=== PATIENT | female | born 1960 | race Caucasian/White ===

== ENCOUNTER 2019-01-15 18:34 | Emergency (ER) | payer BC ==
[2019-01-15] MEDS ORDERED: Sodium Chloride 0.9% 10 ML Syringe FLUSH PRN (18:43)
--- NOTE | 2019-01-15 18:43 | EDM.PDOC ---
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 R79.89 - OTHER SPECIFIED ABNORMAL FINDINGS OF BLOOD CHEMISTRY Status: Acute Priority: High Current Visit: Yes Onset Date: 01/15/19 Annotation/Comment:: No clinical evidence of DVT or PE. Dr. Medina is in agreement of delaying CTA of the chest for now. Patient may benefit from venous Doppler studies of the lower extremities, however. (6) Elevated lactic acid level SNOMED Code(s): 8128962 Code(s): R79.89 - OTHER SPECIFIED ABNORMAL FINDINGS OF BLOOD CHEMISTRY Status: Acute Priority: High Current Visit: Yes Onset Date: 01/15/19 Annotation/Comment:: No fever, leukocytosis, or evidence of sepsis. Consider repeat lactic acid level in about 3 hours by accepting providers. IV heparin and IV fluids initiated as above. (7) Elevated LFTs SNOMED Code(s): 933383166, 880198524 Code(s): R94.5 - ABNORMAL RESULTS OF LIVER FUNCTION STUDIES Status: Acute Priority: High Current Visit: Yes Onset Date: 01/15/19 Annotation/ Comment:: Mild LFTs elevation likely secondary to borderline CHF and/or fatty liver. Continue to observe closely by accepting providers. (8) Hypoalbuminemia SNOMED Code(s): 186604155 Code(s): E88.09 - OTH DISORDERS OF PLASMA-PROTEIN METABOLISM, NEC Status: Acute Priority: Medium Current Visit: Yes Onset Date: 01/15/19 Annotation/Comment:: Observe for now. Consider high protein Glucerna supplements. (9) Hypothyroidism (acquired) SNOMED Code(s): 241928568 Code(s): E03.9 - HYPOTHYROIDISM, UNSPECIFIED Status: Acute Priority: Medium Current Visit: Yes Onset Date: 01/15/19 Annotation/Comment:: Mildly elevated TSH. Consider either initiation of low-dose Synthroid supplementation and/or repeat TSH in 4 weeks. - Problem List Review Problem List Initiated/Reviewed/Updated: Yes - My Orders Last 24 Hours: My Active Orders 01/15/19 18:43 Cardiac Monitoring [RC] . DIRECTED EKG Documentation Completion [RC] ASDIRECTED Oxygen Therapy, ED [RC] PRN Peripheral IV Care [RC] . DIRECTED Pulse Oximetry [RC] CONTINUOUS Up With Assistance [RC] PFP Vital Signs [RC] PFP Chest 1V Frontal [CR] Stat Sodium Chloride 0.9% [Saline Flush] 10 ml FLUSH ASDIRECTED PRN Obtain Past Medical Record [OM.PC] Urgent Peripheral IV Insertion Adult [OM.PC] Stat Resuscitation Status Stat 01/15/19 19:45 Heparin Sodium/D5W [Heparin 25,000 Units in D5W 500 ML] 25,000 units in 500 ml IV TITRATE 01/15/19 20:00 Sodium Chloride 0.9% [Normal Saline] 1,000 ml IV ASDIRECTED 01/15/19 Breakfast Nothing per Oral Now Diet [DIET] - Assessment/Plan Last 24 Hours: My Active Orders 01/15/19 18:43 Cardiac Monitoring [RC] . DIRECTED EKG Documentation Completion [RC] ASDIRECTED Oxygen Therapy, ED [RC] PRN Peripheral IV Care [RC] . DIRECTED Pulse Oximetry [RC] CONTINUOUS Up With Assistance [RC] PFP Vital Signs [RC] PFP Chest 1V Frontal [CR] Stat Sodium Chloride 0.9% [Saline Flush] 10 ml FLUSH ASDIRECTED PRN Obtain Past Medical Record [OM.PC] Urgent Peripheral IV Insertion Adult [OM.PC] Stat Resuscitation Status Stat 01/15/19 19:45 Heparin Sodium/D5W [Heparin 25,000 Units in D5W 500 ML] 25,000 units in 500 ml IV TITRATE 01/15/19 20:00 Sodium Chloride 0.9% [Normal Saline] 1,000 ml IV ASDIRECTED 01/15/19 Breakfast Nothing per Oral Now Diet [DIET] Assessment:: As above Plan: As above. Extensive precautions were given to the patient and her , who are in agreement with the treatment plan. Ambulance transfer with office nurse practitioner accompaniment.
[2019-01-15] MEDS: Adenosine 6 MG/2 ML SDV IVPUSH ONE (18:47)
[2019-01-15] MEDS: Aspirin 81 MG Tab.Chew CHEW ONE (18:58)
[2019-01-15] MEDS: Ticagrelor 90 MG Tab PO ONE (18:59)
[2019-01-15] MEDS: Famotidine 20 MG/2 ML SDV IVPUSH ONE (19:00)
[2019-01-15 19:25] LABS: CHLORIDE,CL 100 mmol/L (98-107); SODIUM,NA 137 mmol/L (136-145)
[2019-01-15] MEDS: Heparin Sodium 5,000 Units/ML Vial IVPUSH ONE (19:59)
[2019-01-15] MEDS: Sodium Chloride 0.9% 1,000 ML IV SCH (20:03)
[2019-01-15] MEDS: Heparin Sodium/D5W 25,000 UNITS/500 ML BAG IV SCH (20:06)
[2019-01-15 20:25] VITALS: BP 123/82; PULSE 84
== END 2019-01-15 20:35 ==
LOC: LL.ED 18:34
DX: I49.3 Ventricular premature depolarization (principal); I49.1 Atrial premature depolarization; E03.9 Hypothyroidism, unspecified; I47.1 Supraventricular tachycardia; I50.9 Heart failure, unspecified; E88.09 Other disorders of plasma-protein metabolism, not elsewhere classified; R94.5 Abnormal results of liver function studies; R74.0 Nonspecific elevation of levels of transaminase and lactic acid dehydrogenase [LDH]; R79.1 Abnormal coagulation profile; Z88.8 Allergy status to other drugs, medicaments and biological substances; Z88.5 Allergy status to narcotic agent; Z79.899 Other long term (current) drug therapy
CPT/HCPCS: 36415; 71045; 80053; 82550; 82553; 83605; 83735; 83880; 84443; 84484; 84550; 85025; 85379; 85610; 85730; 93005; 96365; 96375; 96376; 99285-25; A9270-GY; J0153; J1644; J3490; J7030